=== PATIENT | female | born 1980 | race American Indian/Alaskan Native ===

== ENCOUNTER 2019-11-19 20:25 | Emergency (ER) | payer SELFPAY ==
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
[2019-11-19 22:25] VITALS: BP 116/112
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
== END 2019-11-20 02:50 | disposition home or self-care (01) ==
LOC: ED 20:25
DX: M54.5 Low back pain (principal); M79.18 Myalgia, other site
CPT/HCPCS: 71111; 99283